=== PATIENT | female | born 1985 | race Caucasian/White ===

== ENCOUNTER 2018-11-05 22:16 | Inpatient (IN) | payer OTHER ==
[~2018-11-05] VITALS: Ht 170.2 cm; Wt 110.2 kg
[2018-11-05] MEDS ORDERED: ZYRTEC10 M3 PO (23:43)
[2018-11-05] MEDS ORDERED: PRENATAL 19 TA1 EACH PO (23:43)
== END 2018-11-08 15:33 | disposition home or self-care (01) | DRG 788 ==
LOC: LDR 22:16 → OB/GYN 22:16
PROVIDERS: ADMIT Obstetrics & Gynecology
PROC: 3E0P7VZ Introduction of Hormone into Female Reproductive, Via Natural or Artificial Opening (ICD-10-PCS; 2018-11-05)
PROC: 4A1HXCZ Monitoring of Products of Conception, Cardiac Rate, External Approach (ICD-10-PCS; 2018-11-06)
PROC: 10D00Z1 Extraction of Products of Conception, Low, Open Approach (ICD-10-PCS; principal; 2018-11-06 12:30)
DX: O82 Encounter for cesarean delivery without indication (principal); O65.4 Obstructed labor due to fetopelvic disproportion, unspecified; Z3A.39 39 weeks gestation of pregnancy; Z37.0 Single live birth

== ENCOUNTER → 2021-04-18 08:00 | Outpatient (CLI) | payer OTHER ==
[~2021-04-18] VITALS: Ht 170.2 cm; Wt 98.9 kg
[~2021-04-18 08:00] MED LIST: PRENATAL 19 TA1 EACH PO; ZYRTEC10 M3 PO
== END | disposition home or self-care (01) ==
LOC: ADM 04-01 09:00 → LAB 08:00 → ADM 11:30 → SURH 04-20 09:30 → EDSTATUS 04-20 11:30 → CIR.AMB 04-20 11:30
PROVIDERS: ATTEND Obstetrics & Gynecology
DX: Z76.89 Persons encountering health services in other specified circumstances (principal)